=== PATIENT | female | born 1990 | race Caucasian/White ===

== ENCOUNTER 2020-09-23 20:41 | Emergency (ER) | payer OTHER ==
[~2020-09-23] VITALS: Ht 170.2 cm; Wt 77.1 kg
--- NOTE | 2020-09-23 20:59 | NUR ---
SPOKE WITH SANJUANA FROM POISON CONTROL. RECOMMENDED: LABS: CBC,BMP, TYLENOL, ASP, UA, TOX SCREEN, HCG OBERSERVE FOR 4 HOURS, QUARTER SECTION IRONER AND RESP DEPRESSION DO NOT ADMIN FLUMAZENIL DR. WHYTE MADE AWARE
--- NOTE | 2020-09-23 21:02 | NUR ---
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 PT AAOX3, VSS. RR EVEN & UNLABORED. DENIES SI, CP, SOB, N/V AT THIS TIME. PT SEEN & EVAL'D BY DR. WHYTE. RICARDO OFFICERS AT BS & WILL CONT TO MONITOR.
[2020-09-23] MEDS ORDERED: ONDANSETRON HCL/PF 4 MG/2 ML VIAL ONE (21:05)
--- NOTE | 2020-09-23 21:14 | NUR ---
MEDICATED PER ERMD ORDER, PT BRANT WELL.
[2020-09-23 21:16] LABS: BASOPHILS # (AUTO) 0.3 /CMM (0.0-0.2); BASOPHILS % (AUTO) 3.5 % (0.0-2.0); EOSINOPHILS % (AUTO) 1.5 % (0.0-6.0); HEMATOCRIT 42 % (33-45); HEMOGLOBIN 14.6 g/dL (11.5-14.8); LYMPHOCYTES # (AUTO) 2.3 /CMM (0.8-4.8); LYMPHOCYTES % (AUTO) 31.2 % (20.0-44.0); MEAN CORPUSCULAR HGB CONC 35 g/dl (31.0-36.0); MEAN CORPUSCULAR VOLUME 91 fL (82-100); MONOCYTES # (AUTO) 0.8 /CMM (0.1-1.30); MONOCYTES % (AUTO) 10.9 % (2.0-12.0); NEUTROPHILS % (AUTO) 52.9 % (43.0-81.0); PLATELET COUNT (AUTO) 339 /CMM (150-450); RED BLOOD CELL COUNT(AUTO) 4.58 MIL/uL (4.0-5.2); WHITE BLOOD COUNT (AUTO) 7.5 K/uL (4.3-11.0)
--- NOTE | 2020-09-23 21:19 | NUR ---
[phone] KVNG INGRAMFRIENTristin.
[2020-09-23 21:24] LABS: BILIRUBIN,URINE Negative (NEGATIVE); COLOR,URINE LIGHT YELLOW (YELLOW); LEUKOCYTE ESTERASE ,URINE Negative (NEGATIVE); NITRITE, URINE Negative (NEGATIVE); PROTEIN,URINE Negative (NEGATIVE); UGLUCOSE Negative (NEGATIVE); UROBILINOGEN,URINE 0.2 EU/dL (0.2)
[2020-09-23 21:28] LABS: ACETAMINOPHEN < 10 ug/ml (10-30); ALANINE AMINOTRANSFERASE 39 U/L (12-78); ALBUMIN 4.3 g/dL (3.4-5.0); ALCOHOL, BLOOD 191 mg/dL (0-0); ALKALINE PHOSPHATASE 81 U/L (46-116); ASPARTATE AMINOTRANSFERASE 35 U/L (15-37); BILIRUBIN,DIRECT 0.1 mg/dL (0.0-0.2); BILIRUBIN,TOTAL 0.4 mg/dL (0.2-1.0); CALCIUM, SERUM 9.2 mg/dL (8.5-10.1); CARBON DIOXIDE 24 mmol/L (21-32); CHLORIDE 105 mmol/L (98-107); CREATININE 0.7 mg/dL (0.6-1.3); GLUCOSE 101 mg/dL (74-106); POTASSIUM 3.8 mmol/L (3.5-5.1); SODIUM SERUM 141 mmol/L (136-145); TOTAL PROTEIN, SERUM 8.5 g/dL (6.4-8.2); UREA NITROGEN, BLOOD 13 mg/dL (7-18)
[2020-09-23] MEDS ORDERED: ONDANSETRON HCL/PF 4 MG/2 ML VIAL IV ONE (21:30)
[2020-09-23 21:46] LABS: BACTERIA,URINE Rare /HPF (None Seen); SQUAMOUS EPITHELIAL CELL,UR 0-2 /HPF (None Seen); WBC,URINE 0-2 /HPF (0-3)
--- NOTE | 2020-09-23 21:50 | NUR ---
WILLIAMSID SWABBED, SENT TO LAB.
--- NOTE | 2020-09-23 23:36 | NUR ---
SPOKE TO POSION CONTROL. CASE WILL BE CLOSED. CALL POSION CONTROL IF CONDITION CHANGES.
--- NOTE | 2020-09-23 23:38 | NUR ---
PATIENT IS SLEEPING. EASILY AROUSABLE THROUGH MECHANICAL STIMULI. PATIENT IS BREATHING EVENLY AND UNLABORED ON ROOM AIR. CONNECTED TO THE EMBEDDED SOFTWARE TEST ENGINEER. SITTER AT BEDSIDE. CALL LIGHT WITHIN REACH. WILL CONTINUE TO MONITOR THE PATIENT CLOSELY.
--- NOTE | 2020-09-24 01:19 | NUR ---
PATIENT STATES, "I AM COLD, MAY I HAVE ANOTHER BLANKET?". PATIENT PROVIDED WITH BLANKET FOR COMFORT. DENIES ANY OTHER COMPLAINTS.
--- NOTE | 2020-09-24 01:41 | NUR ---
CALLED LAB FOR PICKUP
--- NOTE | 2020-09-24 04:35 | NUR ---
PATIENT IS AWAKE. AAOX4. NO SOB. BREATHING EVENLY AND UNLABORED ON ROOM AIR. CONNECTED TO THE MONITOR. PATIENT DENIES SI/ HI. MD IS NOTIFIED. PATIENT PROVIDED WITH WATER AND FOOD.
--- NOTE | 2020-09-24 04:46 | NUR ---
HU HERNANDEZ PAGED FOR PSYCH EVAL PER ER MD ORDER.
--- NOTE | 2020-09-24 07:18 | NUR ---
SPOKE WITH MOTHER SIMS. MOTHER WILL PICK PATIENT UP IN 25MINUTES.
--- NOTE | 2020-09-24 08:02 | NUR ---
PATIENT'S MOM IN THE FACILITY. PATIENT AWAKE ALERT AND ORIENTED X4, CHANGED TO HER CLOTHES. AMBULATORY WITH STEADY GAIT. IV removed. Catheter intact and site benign. Pressure and 4x4 applied to site. No bleeding noted.Patient discharged to home in stable condition. Written and verbal after care instructions given. Patient verbalizes understanding of instruction.
[2020-09-24 08:03] VITALS: BP 103/66
== END 2020-09-24 08:03 | disposition home or self-care (01) ==
LOC: ER 20:45
DX: T42.4X1A Poisoning by benzodiazepines, accidental (unintentional), initial encounter (principal); T51.0X1A Toxic effect of ethanol, accidental (unintentional), initial encounter; Y92.039 Unspecified place in apartment as the place of occurrence of the external cause; Z91.5 Personal history of self-harm; Z20.822 Contact with and (suspected) exposure to COVID-19
CPT/HCPCS: 36415; 80048; 80076; 80299; 80307; 80320; 81001; 84703; 85025; 87426; 96374; 99285; C9803; J2405; G0480

== ENCOUNTER 2022-05-25 19:51 | Emergency (ER) | payer BC, OTHER ==
[~2022-05-25] VITALS: Ht 172.7 cm; Wt 81.6 kg
--- NOTE | 2022-05-25 19:59 | NUR ---
NATALYFRIEND - DELIA [phone]
--- NOTE | 2022-05-25 19:59 | NUR ---
MARY BOCANEGRA FROM HOME C/O ETOH AND LAC TO RIGHT ARM. PATIENT IS A/O, NO SOB NOTED. VSS. PATIENT IN NO ACUTE DISTRESS. TAKEN TO ER BED 15. PT CONNECTED TO MONITORS. SITTER AT BEDSIDE.
[2022-05-25] MEDS ORDERED: LIDOCAINE 1%-EPI 1:100,000 20 ML VIAL ONE (20:18)
[2022-05-25] MEDS ORDERED: LIDOCAINE 1%-EPI 1:100,000 20 ML VIAL TP ONE (20:30)
--- NOTE | 2022-05-25 20:41 | NUR ---
bernabe collected and sent to lab.
[2022-05-25 21:00] VITALS: BP 134/78
[2022-05-25 21:07] LABS: BASOPHILS # (AUTO) 0.1 K/uL (0.0-0.2); BASOPHILS % (AUTO) 1.1 % (0.0-2.0); EOSINOPHILS % (AUTO) 1.3 % (0.0-6.0); HEMATOCRIT 44 % (33-45); HEMOGLOBIN 15.2 g/dL (11.5-14.8); LYMPHOCYTES # (AUTO) 2.8 K/uL (0.8-4.8); LYMPHOCYTES % (AUTO) 36.2 % (20.0-44.0); MEAN CORPUSCULAR HGB CONC 35 g/dl (31.0-36.0); MEAN CORPUSCULAR VOLUME 89 fL (82-100); MONOCYTES # (AUTO) 0.6 K/uL (0.1-1.30); MONOCYTES % (AUTO) 7.3 % (2.0-12.0); NEUTROPHILS # (AUTO) 4.1 K/uL (1.8-8.9); NEUTROPHILS % (AUTO) 54.1 % (43.0-81.0); PLATELET COUNT (AUTO) 423 K/uL (150-450); RED BLOOD CELL COUNT(AUTO) 4.93 MIL/uL (4.0-5.2); WHITE BLOOD COUNT (AUTO) 7.6 K/uL (4.3-11.0)
[2022-05-25 21:12] LABS: BILIRUBIN,URINE NEGATIVE (NEGATIVE); COLOR,URINE YELLOW (YELLOW); LEUKOCYTE ESTERASE ,URINE NEGATIVE (NEGATIVE); NITRITE, URINE NEGATIVE (NEGATIVE); PROTEIN,URINE NEGATIVE (NEGATIVE); UGLUCOSE NEGATIVE (NEGATIVE); UROBILINOGEN,URINE 0.2 EU/dL (0.2)
[2022-05-25 22:19] LABS: BACTERIA,URINE None seen /HPF (None Seen); SQUAMOUS EPITHELIAL CELL,UR 0-2 /HPF (None Seen); WBC,URINE 0-2 /HPF (0-3)
--- NOTE | 2022-05-25 22:42 | NUR ---
PATIENT PICKED UP BY DELIA
--- NOTE | 2022-05-25 22:45 | NUR ---
Patient discharged to home in stable condition. Written and verbal after care instructions given. Patient verbalizes understanding of instruction.
[2022-05-25 23:23] LABS: ALBUMIN 4.5 g/dL (3.4-5.0); BILIRUBIN,DIRECT 0.1 mg/dL (0.0-0.2); BILIRUBIN,TOTAL 0.4 mg/dL (0.2-1.0); TOTAL PROTEIN, SERUM 8.6 g/dL (6.4-8.2)
[2022-05-25 23:39] LABS: CALCIUM, SERUM 9.1 mg/dL (8.5-10.1); CREATININE 0.6 mg/dL (0.6-1.3); POTASSIUM 3.5 mmol/L (3.5-5.1)
== END 2022-05-25 22:45 | disposition home or self-care (01) ==
LOC: ER 20:03
DX: F10.129 Alcohol abuse with intoxication, unspecified (principal); S51.812A Laceration without foreign body of left forearm, initial encounter; S51.811A Laceration without foreign body of right forearm, initial encounter; X78.9XXA Intentional self-harm by unspecified sharp object, initial encounter; Y92.009 Unspecified place in unspecified non-institutional (private) residence as the place of occurrence of the external cause; Z20.822 Contact with and (suspected) exposure to COVID-19
CPT/HCPCS: 99283; 85025; 80048; 80076; 84703; 81001; 36415; 87426; 80143; 80320; 80307; 12002; J3490; C9803; G0480